=== PATIENT | female | born 1945 | race Hispanic/Latino ===

== ENCOUNTER → 2017-10-20 | Outpatient (CLI) | payer OTHER ==
[~2017-10-20] MED LIST: ATOR20TA PO; CALC600T12 PO; FISH1CAP49 PO; GARL1TAB2 PO; GINGER ROOT PO; METO-409 PO; RANI300T4 PO; TUMERIC PO; [UNRECOGNIZED DRUG - OTHER] PO
== END | disposition home or self-care (01) ==
LOC: RAH 13:44
PROVIDERS: ATTEND Internal Medicine
DX: R60.0 Localized edema (principal); E78.5 Hyperlipidemia, unspecified
CPT/HCPCS: 93971

== ENCOUNTER 2022-05-09 13:17 | Inpatient (IN) | payer OTHER ==
[~2022-05-09] VITALS: Ht 149.9 cm; Wt 60.8 kg
[~2022-05-09 13:17] MED LIST changes: +CALC-1125 PO; -CALC600T12 PO
[2022-05-09 14:03] LABS: BASOPHILS % (AUTO) 0.5 % (0.0-5.0); EOSINOPHILS % (AUTO) 1.3 % (0.0-8.0); HEMATOCRIT 35.4 % (36-48); LYMPHOCYTES % (AUTO) 16.9 % (21.0-51.0); MEAN CORPUSCULAR HEMOGLOBIN 30.8 pg (27.0-33.0); MEAN CORPUSCULAR HGB CONC 32.5 g/dL (32.0-36.0); MEAN CORPUSCULAR VOLUME 94.9 fL (79-99); MONOCYTES % (AUTO) 8.2 % (3.0-13.0); NEUTROPHILS % (AUTO) 72.6 % (40.0-77.0); PLATELET COUNT (AUTO) 250 K/uL (130-400); RED BLOOD CELL COUNT(AUTO) 3.73 MIL/uL (4.00-5.50); RED CELL DISTRIBUTION WIDTH 14.3 % (11.0-15.5); WHITE BLOOD COUNT (AUTO) 14.3 K/uL (4.8-10.8)
[2022-05-09 14:14] LABS: INR 1.05 (0.85-1.15); PROTHROMBIN TIME 11.4 SEC (9.6-11.6)
[2022-05-09 14:16] LABS: PARTIAL THROMBOPLASTIN TIME 22.3 SEC (26.3-35.5)
[2022-05-09 14:20] LABS: ALBUMIN 3.6 g/dL (3.5-5.0); CREATININE 0.9 mg/dL (0.5-1.5); POTASSIUM 3.9 mmol/L (3.5-5.1); TOTAL PROTEIN, SERUM 6.7 g/dL (6.0-8.3)
[2022-05-09] MEDS ORDERED: MORPHINE 4 MG SYG IVP ONE (15:30)
[2022-05-09] MEDS ORDERED: TIZANIDINE HCL 2 MG TABLET PO SCH (18:00)
[2022-05-09] MEDS ORDERED: HYDROMORPHONE 0.5 MG SYG (0.5MG/0.5ML) IVP PRN (19:00)
[2022-05-09] MEDS ORDERED: PRAV40TA3 PO (20:31)
[2022-05-09] MEDS ORDERED: SERT-439 PO (20:31)
[2022-05-09] MEDS ORDERED: PANT40TA54 PO (20:31)
[2022-05-09] MEDS ORDERED: [UNRECOGNIZED DRUG - OTHER] PO (20:31)
[2022-05-09] MEDS ORDERED: PRED20TA3 PO (20:31)
[2022-05-09] MEDS ORDERED: [UNRECOGNIZED DRUG - OTHER] PO (20:31)
[2022-05-09] MEDS ORDERED: HYDR25TA PO (20:31)
[2022-05-09] MEDS ORDERED: COQ PO (20:31)
[2022-05-09] MEDS ORDERED: OMEGA PO (20:31)
[2022-05-09] MEDS ORDERED: [UNRECOGNIZED DRUG - OTHER] PO (20:31)
[2022-05-09] MEDS ORDERED: ALPHA CRS PO (20:31)
[2022-05-09] MEDS ORDERED: turmeric PO (20:31)
[2022-05-09] MEDS ORDERED: METO-409 PO (20:31)
[2022-05-09] MEDS ORDERED: BACL10TA PO (20:31)
[2022-05-09 20:33] VITALS: BP 144/59
[2022-05-09] MEDS: 1/2 NS 1000ML 1,000 ML IV SCH (23:46)
[2022-05-10] VITALS (22 sets, daily range): BP systolic 108–143; BP diastolic 46–71
[2022-05-10] MEDS: 1/2 NS 1000ML 1,000 ML IV SCH ×3 (03:00→23:00)
[2022-05-10 04:40] LABS: BASOPHILS % (AUTO) 0.6 % (0.0-5.0); EOSINOPHILS % (AUTO) 1.7 % (0.0-8.0); HEMATOCRIT 34.2 % (36-48); LYMPHOCYTES % (AUTO) 27.5 % (21.0-51.0); MEAN CORPUSCULAR HEMOGLOBIN 30.7 pg (27.0-33.0); MEAN CORPUSCULAR VOLUME 92.9 fL (79-99); MONOCYTES % (AUTO) 9.2 % (3.0-13.0); NEUTROPHILS % (AUTO) 60.6 % (40.0-77.0); PLATELET COUNT (AUTO) 293 K/uL (130-400); RED BLOOD CELL COUNT(AUTO) 3.68 MIL/uL (4.00-5.50); RED CELL DISTRIBUTION WIDTH 13.9 % (11.0-15.5); WHITE BLOOD COUNT (AUTO) 9.7 K/uL (4.8-10.8)
[2022-05-10 04:55] LABS: ALBUMIN 3.2 g/dL (3.5-5.0); POTASSIUM 3.9 mmol/L (3.5-5.1); TOTAL PROTEIN, SERUM 6.4 g/dL (6.0-8.3)
[2022-05-10] MEDS ORDERED: EPHEDRINE SULFATE 50 MG/ML AMPULE ONE (07:48)
[2022-05-10] MEDS ORDERED: LIDOCAINE PF 100MG/5ML (2%) SYRINGE 5ML ONE (07:48)
[2022-05-10] MEDS ORDERED: PROPOFOL 10 MG/ML 20ML VIAL IV ONE (07:49)
[2022-05-10] MEDS ORDERED: ROCURONIUM 10MG/1ML SYR 10 MG/ML ML ONE (07:49)
[2022-05-10] MEDS ORDERED: FENTANYL CITRATE PF 50 MCG/1 ML 2ML VIAL ONE (07:50)
[2022-05-10] MEDS ORDERED: CEFAZOLIN SODIUM 2 GM VIAL ONE (08:04)
[2022-05-10] MEDS ORDERED: ROPIVACAINE 0.5% 5MG/ML 30ML IJ ONE (08:06)
[2022-05-10] MEDS ORDERED: TRANEXAMIC ACID 1000MG/10ML ONE (08:42)
[2022-05-10] MEDS ORDERED: DEXAMETHASONE SOD PHOSPHATE 10MG/ML 1ML VIAL ONE (08:48)
[2022-05-10] MEDS ORDERED: ONDANSETRON 4MG INJ ONE (08:48)
[2022-05-10] MEDS: ATORVASTATIN 10 MG TABLET PO SCH (09:00)
[2022-05-10] MEDS: BACLOFEN 10 MG TABLET PO SCH ×2 (09:00→19:33)
[2022-05-10] MEDS: HYDROCHLOROTHIAZIDE 25 MG TABLET PO SCH (09:00)
[2022-05-10] MEDS ORDERED: ENOXAPARIN SODIUM 40 MG/0.4 ML SYRINGE SQ SCH (09:00)
[2022-05-10] MEDS: PREDNISONE 20 MG TABLET PO SCH (09:00)
[2022-05-10] MEDS: METOPROLOL SUCCINATE 50 MG TAB.SR.24H PO SCH (09:00)
[2022-05-10] MEDS: PANTOPRAZOLE 40 MG TAB DR PO SCH (09:00)
[2022-05-10] MEDS: SERTRALINE HCL 50 MG TABLET PO SCH (09:00)
[2022-05-10] MEDS ORDERED: NEOSTIGMINE 5MG/5ML SYR IV ONE (10:13)
[2022-05-10] MEDS ORDERED: GLYCOPYRROLATE 1 MG/5 ML SYRINGE ONE (10:13)
[2022-05-10] MEDS ORDERED: MEPERIDINE-PF 25 MG/ML SYG ONE (10:17)
[2022-05-10] MEDS ORDERED: LIDOCAINE HCL-MPF 1% 2ML VIAL IV PRN (19:30)
[2022-05-10] MEDS ORDERED: POTASSIUM CHLORIDE 20MEQ/100ML 100 ML IV PRN (19:30)
[2022-05-10] MEDS ORDERED: KCL 20 MEQ ERTAB PO PRN (19:30)
[2022-05-10] MEDS ORDERED: HYDROCODONE/ACETAMINOPHEN 5/325 MG TAB PO PRN (19:30)
[2022-05-10] MEDS ORDERED: POTASSIUM CHLORIDE 10% ELIXIR 20 MEQ/15 ML UDCUP PO PRN (19:30)
[2022-05-10] MEDS ORDERED: FERROUS FUMARATE 324 MG TABLET PO PRN (19:30)
[2022-05-11] MEDS: CEFAZOLIN SODIUM 2 GM VIAL IVP SCH ×2 (00:13→08:51)
[2022-05-11 03:53] VITALS: BP 135/60
[2022-05-11 05:21] LABS: HEMATOCRIT 31.7 % (36-48); MEAN CORPUSCULAR HEMOGLOBIN 30.6 pg (27.0-33.0); MEAN CORPUSCULAR HGB CONC 33.1 g/dL (32.0-36.0); MEAN CORPUSCULAR VOLUME 92.4 fL (79-99); RED BLOOD CELL COUNT(AUTO) 3.43 MIL/uL (4.00-5.50); RED CELL DISTRIBUTION WIDTH 13.9 % (11.0-15.5); WHITE BLOOD COUNT (AUTO) 12.5 K/uL (4.8-10.8)
[2022-05-11 05:36] LABS: POTASSIUM 3.9 mmol/L (3.5-5.1)
[2022-05-11 08:00] VITALS: BP 124/54
[2022-05-11] MEDS: SERTRALINE HCL 50 MG TABLET PO SCH (08:48)
[2022-05-11] MEDS: BACLOFEN 10 MG TABLET PO SCH ×2 (08:48→19:49)
[2022-05-11] MEDS: PREDNISONE 20 MG TABLET PO SCH (08:48)
[2022-05-11] MEDS: ATORVASTATIN 10 MG TABLET PO SCH (08:49)
[2022-05-11] MEDS: PANTOPRAZOLE 40 MG TAB DR PO SCH (08:49)
[2022-05-11] MEDS: METOPROLOL SUCCINATE 50 MG TAB.SR.24H PO SCH (08:50)
[2022-05-11] MEDS: HYDROCHLOROTHIAZIDE 25 MG TABLET PO SCH (08:50)
[2022-05-11] MEDS: 1/2 NS 1000ML 1,000 ML IV SCH ×2 (08:51→18:17)
[2022-05-11] MEDS: POLYETHYLENE GLYCOL 3350 17 GM POWD.PACK PO SCH (08:51)
[2022-05-11 12:00] VITALS: BP 136/59
[2022-05-11 16:00] VITALS: BP 130/47
[2022-05-11 19:39] VITALS: BP 123/58
[2022-05-11 23:00] VITALS: BP 139/60
[2022-05-12 04:14] VITALS: BP 139/58
[2022-05-12] MEDS: 1/2 NS 1000ML 1,000 ML IV SCH (04:59)
[2022-05-12 08:00] VITALS: BP 146/49
[2022-05-12] MEDS: ATORVASTATIN 10 MG TABLET PO SCH (08:37)
[2022-05-12] MEDS: HYDROCHLOROTHIAZIDE 25 MG TABLET PO SCH (08:37)
[2022-05-12] MEDS: PREDNISONE 20 MG TABLET PO SCH (08:37)
[2022-05-12] MEDS: BACLOFEN 10 MG TABLET PO SCH (08:37)
[2022-05-12] MEDS: PANTOPRAZOLE 40 MG TAB DR PO SCH (08:37)
[2022-05-12] MEDS: SERTRALINE HCL 50 MG TABLET PO SCH (08:37)
[2022-05-12] MEDS: POLYETHYLENE GLYCOL 3350 17 GM POWD.PACK PO SCH (08:37)
[2022-05-12] MEDS: METOPROLOL SUCCINATE 50 MG TAB.SR.24H PO SCH (08:38)
[2022-05-12 11:50] VITALS: BP 145/64
[2022-05-12] MEDS ORDERED: ENOXAPARIN SODIUM 40 MG/0.4 ML SYRINGE SQ SCH (12:30)
[2022-05-12 16:00] VITALS: BP 146/46
[2022-05-13] MEDS ORDERED: BISACODYL 10 MG SUPP.RECT RC PRN (19:30)
== END 2022-05-12 19:19 | DRG 482 ==
LOC: EDH 13:17 → EDHIP 15:12 → 4DH 18:20
PROVIDERS: ADMIT Internal Medicine; ATTEND Internal Medicine
PROC: 0QH634Z Insertion of Internal Fixation Device into Right Upper Femur, Percutaneous Approach (ICD-10-PCS; principal; 2022-05-10 08:00)
DX: S72.21XA Displaced subtrochanteric fracture of right femur, initial encounter for closed fracture (principal); E78.00 Pure hypercholesterolemia, unspecified; Z20.822 Contact with and (suspected) exposure to COVID-19; I10 Essential (primary) hypertension; M81.0 Age-related osteoporosis without current pathological fracture; M19.90 Unspecified osteoarthritis, unspecified site; W18.39XA Other fall on same level, initial encounter; Y93.89 Activity, other specified; Y92.89 Other specified places as the place of occurrence of the external cause; Y99.8 Other external cause status
CPT/HCPCS: 36415; 71045; 72192; 73503; 73552; 80048; 80053; 85025; 85027; 85610; 85730; 86850; 86900; 86901; 86923; 87426; 93005; 97039; G0378; J1100; J1170; J1650; J2001; J2175; J2270; J2405; J2704; J2710; J2795; J3010; J3490

== ENCOUNTER → 2024-09-09 | Outpatient (CLI) | payer OTHER ==
[~2024-09-09] MED LIST changes: -ATOR20TA PO; +BACL10TA PO; -CALC-1125 PO; -FISH1CAP49 PO; -GARL1TAB2 PO; -GINGER ROOT PO; +HYDR25TA PO; +PANT40TA54 PO; +PRAV40TA62 PO; +PRED20TA3 PO; -RANI300T4 PO; +SERT-439 PO; -TUMERIC PO; -[UNRECOGNIZED DRUG - OTHER] PO
--- NOTE | 2024-09-11 09:36 | HMCSR ---
APPROVED REPORT EXAM: Two-dimensional and M-mode echocardiogram with Doppler and color Doppler. INDICATION ICD: I51.7 Cardiomegaly 2D Dimensions RVDd3.7 cmLVEF(%)67.8 (>50%)LVED Vol(simp.)60.0 mL IVSd0.9 (0.7-1.1cm)FS(%)37 %LVES Vol(simp.)22.0 mL LVDd4.1 (3.8-5.6cm)LA (2D)4.3 (1.6-4.0cm)LVEF(%, simp.)64 % PWd1.0 (0.7-1.1cm)Ao Root(2D)2.7 (2.0-3.7cm)LA ESV INDEX (BP)47.45 mL/m2 IVSs1.3 cmLVOT diam1.9 (1.8-2.4cm) LVDs2.6 (2.5-4.0cm)IVC diam2.2 cm PWs1.2 cm M-Mode Dimensions LA (MM)4.4 (1.6-4.0cm) Ao Root(MM)2.7 (2.0-3.7cm) Aortic Valve AoV Vmax2.0 m/Cris Peak GR16.1 mmHgLVOT Vmax1.4 m/s AoV VTI0.4 mAo Mean GR9.7 mmHgLVOT VTI0.29 m MARNI (VMAX)1.84 cm2AVA (VTI) 2.1 cm2 Mitral Valve MV E Vmax83.9 cm/sDECEL [id number] ms MV A Vmax80.9 cm/sP 1/2 T35 ms E/A ratio1.0MVA (PHT)6.3 cm2 TDI E/E' Jlhwjv59.6E/E' Qaiglsh10.8 Medial E' Peak V2.93 cm/sLateral E' Peak V3.25 cm/s Pulmonary Valve PV Vmax1.0 m/sPV VTI0.22 mPV Mean GR2.1 mmHg PV Peak GR4.4 mmHgPI End Kayla. Maximus 89.4 cm/s Tricuspid Valve TR Vmax3.0 m/sRAP (EST) 8 ilRiALJC59.0 mmHg TR Peak GR37.0 mmHg Left Ventricle The left ventricle is normal size. There is normal LV segmental wall motion. Mild to moderate assymet rical left ventricular hypertrophy. LVEF is 60-65%. Stage II, diastolic dysfunction. Right Ventricle The right ventricle is normal size. The right ventricular systolic function is normal. Atria The left atrium is moderately dilated. The right atrium size is normal. Aortic Valve The aortic valve is normal in structure. No aortic regurgitation is present. There is no aortic valvu lar stenosis. Mitral Valve The mitral valve is normal in structure. There is mild mitral valve regurgitation noted. There is no mitral valve stenosis. Tricuspid Valve The tricuspid valve is normal in structure. There is moderate tricuspid valve regurgitation noted. Mi ld to moderate Pulmonary Hypertension. Pulmonic Valve The pulmonary valve is normal in structure. There is trace of pulmonic valvular regurgitation. Great Vessels The aortic root is normal in size. IVC is dilated and collapses >50% with inspiration. Pericardium There is no pericardial effusion. Other Information Quality : Adequate Conclusion LVEF is 60-65%. Stage II, diastolic dysfunction. The left atrium is moderately dilated. There is mild mitral valve regurgitation noted. Mild to moderate Pulmonary Hypertension.
--- NOTE | 2024-09-13 20:43 | HMCIMG ---
EXAMINATION: SPECTRAL DOPPLER ULTRASOUND EXAMINATION OF THE BILATERAL LOWER EXTREMITY VEINS. CLINICAL HISTORY: Pain. COMPARISON: Duplex lower extremity veins dated 10/20/2017. TECHNIQUE: Real-time ultrasound scan of the veins of the bilateral lower extremity with color Doppler flow, spectral waveform analysis and compression. FINDINGS: DEEP VEINS: The common femoral, superficial femoral, and popliteal veins are echolucent and compressible. There is normal color Doppler flow throughout. The visualized calf veins appear patent. SUPERFICIAL VEINS: The greater saphenous veins are patent and compressible. SOFT TISSUES: No popliteal fossa cyst or other abnormalities. IMPRESSION: No deep venous thrombosis evident in the bilateral lower extremity. No superficial thrombophlebitis in the bilateral lower extremity. /[place]
--- NOTE | 2024-09-13 20:43 | HMCIMG ---
EXAMINATION: DUPLEX ULTRASOUND EXAMINATION OF THE BILATERAL LOWER EXTREMITY ARTERIES. CLINICAL HISTORY: Pain. COMPARISON: None. FINDINGS: Peak systolic velocities within the right lower arteries are as follows: Common femoral artery: 200 cm/s. Superficial femoral artery: 138 cm/s at proximal, 201 cm/s at mid, and 106 cm/s at distal segments. Popliteal artery: 99 cm/s at proximal and 116 cm/s at distal segments. Posterior tibial artery: 58 cm/s. Anterior tibial artery: 109 cm/s. Dorsalis pedis artery: 89 cm/s. The right lower limb arteries demonstrate triphasic to biphasic waveforms in all arteries. Peak systolic velocities within the left lower arteries are as follows: Common femoral artery: 200 cm/s. Superficial femoral artery: 119 cm/s at proximal, 102 cm/s at mid, and 114 cm/s at distal segments. Popliteal artery: 52 cm/s at proximal and 148 cm/s at distal segments. Posterior tibial artery: 73 cm/s. Anterior tibial artery: 143 cm/s. Dorsalis pedis artery: 93 cm/s. The left lower limb arteries demonstrate triphasic to biphasic waveforms in all arteries. There is intimal wall thickening in both the lower limb arteries. IMPRESSION: Mild intimal wall thickening in both the lower limb arteries. Both lower limb arteries demonstrate triphasic to biphasic waveforms. Increased velocity in the bilateral common femoral and right mid superficial femoral arteries with 20% to 49% stenosis. No flow limiting lesions in the remainder of the arteries. /[place]
== END | disposition home or self-care (01) ==
LOC: RAH 11:45
PROVIDERS: ATTEND Internal Medicine
DX: I08.1 Rheumatic disorders of both mitral and tricuspid valves (principal); I87.1 Compression of vein; I77.89 Other specified disorders of arteries and arterioles; M79.606 Pain in leg, unspecified; I27.20 Pulmonary hypertension, unspecified
CPT/HCPCS: 93306; 93925; 93970

== ENCOUNTER → 2024-09-22 | Outpatient (CLI) | payer OTHER, MEDICARE ==
[2024-09-22] MEDS: REGADENOSON 0.4 MG/5 ML PF SYG IVP ONE (14:13)
--- NOTE | 2024-09-23 19:49 | HMCSR ---
APPROVED REPORT Height: 4 ft 10in Weight: 142 lbs TEST INDICATIONS SHORTNESS OF BREATH The imaging protocol used to acquire images was Rest Tc-99m/stress Tc-99m 1 day Consent: The procedure was explained and understood by the patient. Informerd consent was witnessed Corin REYES RN First, low dose rest was performed then high dose stress. RESTING DATA: The resting ekg shows: NSR Rest SPECT myocardial perfusion imaging was performed in supine position minutes following the intra venous injection of mCi of Tc-99 Sestamibi. Time of rest injection: 11:19: Date: 09/22/2024 PHARMACOLOGIC STRESS: Pharmacologic stress test was performed by injecting regadenoson 0.4 mg IV push followed by the intra venous injection of mCi of Tc-99 Sestamibi. Time of stress injection: 13:14: Date: 09/22/2024 Heart Rate at time of stress injection: 54 bpm. Gated Stress SPECT was performed 60 minutes after stress injection. The images were gated to evaluate regional wall motion and calculate left ventricular ejection fracti on. STRESS DETAILS Reason for Termination: Infusion complete Stress Symptoms: Dyspnea Max HR Achieved: 70 bpm % of APMHR Achieved: 59 Max Blood Pressure: 153/63 mmHg Stress ECG: NSR Study quality was excellent. Lung uptake was Normal. Artifact: No artifact LEFT VENTRICLE Size: The left ventricular size is normal. Systolic Function:The left ventricular systolic function is normal. Wall Motion: No regional wall motion abnormalities noted. The left ventricular ejection fraction was calculated to be 79%.TID = 1.00. LV PERFUSION The rest and stress images show normal perfusion. RV Size/Shape Normal RV Conclusion The left ventricular ejection fraction was calculated to be 79%.TID = 1.00. The rest and stress images show normal perfusion.
== END | disposition home or self-care (01) ==
LOC: RAH 10:29
PROVIDERS: ATTEND Internal Medicine
DX: R06.02 Shortness of breath (principal); I51.7 Cardiomegaly
CPT/HCPCS: 78452; 93017; J2785; A9500 ×2